=== PATIENT | female | born 1935 | race Hispanic/Latino ===

== ENCOUNTER 2019-04-07 16:47 | Emergency (ER) | payer MEDICARE ==
[~2019-04-07 16:47] MED LIST: ESOM40CA PO; FURO40TA5 PO; GLIP5TAB11 PO; INSU100I21 SQ; LEVO100T12 PO; LINA1TAB5 PO; LISI-613 PO; POTA-9 PO; SERT25TA5 PO; SIMV40TA59 PO
[2019-04-07] MEDS ORDERED: ONDANSETRON HCL 4 MG/2 ML VIAL ONE (17:22)
[2019-04-07] MEDS ORDERED: SODIUM CHLORIDE 0.9% 1000ML 1,000 ML IV ONE (17:22)
[2019-04-07 17:23] LABS: BASOPHILS % (AUTO) 0.9 % (0.0-5.0); EOSINOPHILS % (AUTO) 1.1 % (0.0-8.0); HEMATOCRIT 36.6 % (36-48); LYMPHOCYTES % (AUTO) 24.8 % (21.0-51.0); MEAN CORPUSCULAR HEMOGLOBIN 30.7 pg (27.0-33.0); MEAN CORPUSCULAR HGB CONC 33.7 g/dL (32.0-36.0); MEAN CORPUSCULAR VOLUME 91.3 fL (79-99); MONOCYTES % (AUTO) 5.6 % (3.0-13.0); NEUTROPHILS % (AUTO) 67.6 % (40.0-77.0); PLATELET COUNT (AUTO) 259 K/uL (130-400); RED CELL DISTRIBUTION WIDTH 13.1 % (11.0-15.5); WHITE BLOOD COUNT (AUTO) 8.8 K/uL (4.8-10.8)
[2019-04-07 17:28] LABS: APPEARANCE,URINE Clear (CLEAR); BILIRUBIN,URINE Negative (NEGATIVE); COLOR,URINE Dark Yellow (YELLOW); GLUCOSE, URINE (UA) TRACE mg/dL (NEGATIVE); KETONES,URINE Negative (NEGATIVE); LEUKOCYTE ESTERASE ,URINE Small (NEGATIVE); NITRATE,URINE Negative (NEGATIVE); OCCULT BLOOD,URINE Negative (NEGATIVE); PH,URINE 7.5 (5.0-8.0); PROTEIN,URINE POS 1+ mg/dL (NEGATIVE); UROBILINOGEN,URINE 0.2 mg/dL (0.2-1.0)
[2019-04-07 17:37] LABS: CREATININE 0.9 mg/dL (0.5-1.5); POTASSIUM 4.2 mmol/L (3.5-5.1)
[2019-04-07 17:41] LABS: ALBUMIN 3.9 g/dL (3.5-5.0); BILIRUBIN,DIRECT 0.1 mg/dL (0.0-0.3); BILIRUBIN,TOTAL 0.4 mg/dL (0.2-1.0); TOTAL PROTEIN, SERUM 7.5 g/dL (6.0-8.3)
[2019-04-07 17:46] LABS: BACTERIA,URINE Few /HPF (None Seen); MUCUS,URINE Few LPF (None Seen); RBC,URINE 0-1 /HPF (0-1)
== END 2019-04-07 18:31 | disposition home or self-care (01) ==
LOC: EDH 16:47
DX: K52.9 Noninfective gastroenteritis and colitis, unspecified (principal); E11.9 Type 2 diabetes mellitus without complications; I10 Essential (primary) hypertension; M81.0 Age-related osteoporosis without current pathological fracture; Z79.4 Long term (current) use of insulin
CPT/HCPCS: 36415; 74176; 80048; 80076; 81001; 82550; 83690; 84484; 85025; 93005; 96361; 96374; 99285; J2405; J7030

== ENCOUNTER → 2019-11-18 | Outpatient (CLI) | payer MEDICARE ==
[~2019-11-18] MED LIST changes: +GADODIAMIDE 10 MMOL/20 ML VIAL IV ONE
== END | disposition home or self-care (01) ==
LOC: RAH 10:54
PROVIDERS: ATTEND Family Medicine
DX: G50.1 Atypical facial pain (principal); G31.89 Other specified degenerative diseases of nervous system
CPT/HCPCS: 70543; A9579

== ENCOUNTER 2019-12-31 09:27 | Emergency (ER) | payer MEDICARE ==
[~2019-12-31 09:27] MED LIST changes: -GADODIAMIDE 10 MMOL/20 ML VIAL IV ONE
[2019-12-31] MEDS ORDERED: SODIUM CHLORIDE 0.9% 500ML 500 ML IV ONE (09:28)
[2019-12-31] MEDS ORDERED: ONDANSETRON HCL 4 MG/2 ML VIAL ONE (10:00)
[2019-12-31 10:33] LABS: BASOPHILS % (AUTO) 1.3 % (0.0-5.0); EOSINOPHILS % (AUTO) 1.6 % (0.0-8.0); HEMATOCRIT 32.9 % (36-48); MEAN CORPUSCULAR HEMOGLOBIN 29.8 pg (27.0-33.0); MEAN CORPUSCULAR HGB CONC 33.7 g/dL (32.0-36.0); MEAN CORPUSCULAR VOLUME 88.4 fL (79-99); MONOCYTES % (AUTO) 9.3 % (3.0-13.0); NEUTROPHILS % (AUTO) 60.3 % (40.0-77.0); PLATELET COUNT (AUTO) 238 K/uL (130-400); RED BLOOD CELL COUNT(AUTO) 3.72 MIL/uL (4.00-5.50); RED CELL DISTRIBUTION WIDTH 13.9 % (11.0-15.5); WHITE BLOOD COUNT (AUTO) 6.1 K/uL (4.8-10.8)
[2019-12-31 10:43] LABS: CARBON DIOXIDE 25 mmol/L (21-32); CHLORIDE 93 mmol/L (101-111); CREATININE 0.8 mg/dL (0.5-1.5); GLOMERULAR FILTR. RATE CALC 72 mL/min (>60); GLUCOSE,RANDOM 125 mg/dL (70-105); POTASSIUM 4.3 mmol/L (3.5-5.1); SODIUM SERUM 128 mmol/L (136-145); UREA NITROGEN, BLOOD 12 mg/dL (7-18)
[2019-12-31 10:52] LABS: ALANINE AMINOTRANSFERASE 13 U/L (12-78); ALBUMIN 3.2 g/dL (3.5-5.0); ASPARTATE AMINOTRANSFERASE 12 U/L (10-37); BILIRUBIN,DIRECT < 0.1 mg/dL (0.0-0.3); BILIRUBIN,TOTAL 0.1 mg/dL (0.2-1.0); CREATINE KINASE, TOTAL 23 U/L (21-232); TOTAL PROTEIN, SERUM 6.5 g/dL (6.0-8.3)
[2019-12-31 10:53] LABS: APPEARANCE,URINE Clear (CLEAR); BILIRUBIN,URINE Negative (NEGATIVE); COLOR,URINE Yellow (YELLOW); GLUCOSE, URINE (UA) Negative (NEGATIVE); KETONES,URINE Negative (NEGATIVE); LEUKOCYTE ESTERASE ,URINE Negative (NEGATIVE); NITRATE,URINE Negative (NEGATIVE); OCCULT BLOOD,URINE Negative (NEGATIVE); PROTEIN,URINE Negative (NEGATIVE); UROBILINOGEN,URINE 0.2 mg/dL (0.2-1.0)
== END 2019-12-31 13:43 | disposition home or self-care (01) ==
LOC: EDH 09:27
DX: R42 Dizziness and giddiness (principal); R11.0 Nausea; E11.9 Type 2 diabetes mellitus without complications; I10 Essential (primary) hypertension; M19.90 Unspecified osteoarthritis, unspecified site; M81.0 Age-related osteoporosis without current pathological fracture
CPT/HCPCS: 36415; 70450; 71045; 80048; 80076; 81003; 82550; 84484; 85025; 93005; 96374; 99285; J2405; J7040

== ENCOUNTER 2021-10-17 09:09 | Inpatient (IN) | payer MEDICARE ==
[~2021-10-17] VITALS: Ht 162.6 cm; Wt 74.4 kg
[~2021-10-17 09:09] MED LIST changes: -LISI-613 PO; +LISI20TA24 PO; +POTA-10 PO; -POTA-9 PO; +SERT-438 PO; -SERT25TA5 PO
[2021-10-17 09:38] LABS: BASOPHILS % (AUTO) 0.7 % (0.0-5.0); HEMATOCRIT 34.4 % (36-48); LYMPHOCYTES % (AUTO) 25.4 % (21.0-51.0); MEAN CORPUSCULAR HEMOGLOBIN 28.4 pg (27.0-33.0); MEAN CORPUSCULAR HGB CONC 31.7 g/dL (32.0-36.0); MEAN CORPUSCULAR VOLUME 89.6 fL (79-99); MONOCYTES % (AUTO) 6.1 % (3.0-13.0); NEUTROPHILS % (AUTO) 65.4 % (40.0-77.0); PLATELET COUNT (AUTO) 306 K/uL (130-400); RED BLOOD CELL COUNT(AUTO) 3.84 MIL/uL (4.00-5.50); RED CELL DISTRIBUTION WIDTH 14.7 % (11.0-15.5); WHITE BLOOD COUNT (AUTO) 8.1 K/uL (4.8-10.8)
[2021-10-17 09:59] LABS: CREATININE 1.3 mg/dL (0.5-1.5); POTASSIUM 5.5 mmol/L (3.5-5.1)
[2021-10-17] MEDS ORDERED: 0.9%NACL 1000ML 1,000 ML IV ONE (10:00)
[2021-10-17 10:04] LABS: ALBUMIN 3.5 g/dL (3.5-5.0); BILIRUBIN,TOTAL 0.2 mg/dL (0.2-1.0); MAGNESIUM 1.7 mg/dL (1.80-2.40); TOTAL PROTEIN, SERUM 7.1 g/dL (6.0-8.3)
[2021-10-17] MEDS ORDERED: ATOR10TA69 PO (10:41)
[2021-10-17] MEDS ORDERED: BACL10TA PO (10:41)
[2021-10-17] MEDS ORDERED: CHOL2400 MC (10:42)
[2021-10-17] MEDS ORDERED: LEVO112C4 PO (10:43)
[2021-10-17] MEDS ORDERED: METO-408 PO (10:43)
[2021-10-17 11:10] LABS: APPEARANCE,URINE Clear (CLEAR); BILIRUBIN,URINE Negative (NEGATIVE); COLOR,URINE Yellow (YELLOW); GLUCOSE, URINE (UA) TRACE mg/dL (NEGATIVE); KETONES,URINE Negative (NEGATIVE); LEUKOCYTE ESTERASE ,URINE Trace (NEGATIVE); NITRATE,URINE Negative (NEGATIVE); OCCULT BLOOD,URINE Negative (NEGATIVE); PROTEIN,URINE Negative (NEGATIVE); UROBILINOGEN,URINE 0.2 mg/dL (0.2-1.0)
[2021-10-17 11:19] LABS: BACTERIA,URINE Rare /HPF (None Seen); SQUAMOUS EPITHELIAL CELL,UR 0-2 /HPF (0-2); WBC,URINE 0-1 /HPF (0-1)
[2021-10-17] MEDS ORDERED: OSELTAMIVIR PHOSPHATE 75 MG CAP PO SCH (11:30)
[2021-10-17] MEDS ORDERED: ACETAMINOPHEN 325 MG TAB PO PRN (12:30)
[2021-10-17] MEDS: ARTIFICAL TEARS SOL 15 ML OU SCH (12:30)
[2021-10-17] MEDS ORDERED: KAYEXALATE 15GM/60ML PO PRN (12:30)
[2021-10-17] MEDS ORDERED: ALBUTEROL INHALER 90MCG/INH IH PRN (12:30)
[2021-10-17] MEDS ORDERED: HYDRALAZINE 20MG/ML VIAL IV PRN ×2 (12:30→19:30)
[2021-10-17] MEDS: MAGNESIUM 2GM PREMIX 50ML 50 ML IV PRN (13:10)
[2021-10-17] MEDS: CLONIDINE HCL 0.1 MG TABLET PO PRN (13:12)
[2021-10-17] MEDS ORDERED: LIDOCAINE HCL-MPF 1% 2ML VIAL ONE (15:21)
[2021-10-17] MEDS ORDERED: HYDROMORPHONE 0.5 MG SYG (0.5MG/0.5ML) ONE ×2 (15:22→15:33)
[2021-10-17 16:14] VITALS: BP 180/84
[2021-10-17] MEDS ORDERED: INSULIN HUMULIN R 100 UNIT/ML 3ML SQ SCH (16:30)
[2021-10-17] MEDS ORDERED: TRAMADOL HCL 50 MG TABLET PO PRN (19:30)
[2021-10-17] MEDS ORDERED: MORPHINE 2 MG SYG IVP PRN (20:00)
[2021-10-17 20:01] VITALS: BP 195/97
[2021-10-17] MEDS: HYDROMORPHONE 0.5 MG SYG (0.5MG/0.5ML) IVP PRN (20:30)
[2021-10-17] MEDS: INSULIN LISPRO 100 UNIT/ML 3ML SQ SCH (21:00)
[2021-10-17 23:14] VITALS: BP 193/102
[2021-10-18] MEDS: CLONIDINE HCL 0.1 MG TABLET PO PRN (00:17)
[2021-10-18 03:26] VITALS: BP 184/97
[2021-10-18 03:28] LABS: BASOPHILS % (AUTO) 0.5 % (0.0-5.0); EOSINOPHILS % (AUTO) 0.3 % (0.0-8.0); HEMATOCRIT 33.7 % (36-48); LYMPHOCYTES % (AUTO) 14.9 % (21.0-51.0); MEAN CORPUSCULAR HEMOGLOBIN 27.5 pg (27.0-33.0); MEAN CORPUSCULAR VOLUME 85.8 fL (79-99); MONOCYTES % (AUTO) 5.1 % (3.0-13.0); NEUTROPHILS % (AUTO) 78.8 % (40.0-77.0); PLATELET COUNT (AUTO) 305 K/uL (130-400); RED BLOOD CELL COUNT(AUTO) 3.93 MIL/uL (4.00-5.50); RED CELL DISTRIBUTION WIDTH 14.1 % (11.0-15.5)
[2021-10-18 03:48] LABS: B-TYPE NATRIURETIC PEPTIDE 158 pg/mL (0-100)
[2021-10-18 03:59] LABS: ALBUMIN 3.5 g/dL (3.5-5.0); BILIRUBIN,TOTAL 0.3 mg/dL (0.2-1.0); CREATININE 0.7 mg/dL (0.5-1.5); MAGNESIUM 1.9 mg/dL (1.80-2.40); PHOSPHORUS 3.8 mg/dL (2.5-4.9); POTASSIUM 4.3 mmol/L (3.5-5.1); THYROID STIMULATING HORMONE 0.25 uIU/mL (0.36-3.74); TOTAL PROTEIN, SERUM 7.2 g/dL (6.0-8.3)
[2021-10-18] MEDS: HYDROMORPHONE 0.5 MG SYG (0.5MG/0.5ML) IVP PRN ×2 (04:40→15:47)
[2021-10-18] MEDS: ARTIFICAL TEARS SOL 15 ML OU SCH ×6 (06:30→23:59)
[2021-10-18] MEDS: INSULIN LISPRO 100 UNIT/ML 3ML SQ SCH ×4 (06:51→20:59)
[2021-10-18] MEDS ORDERED: BACLOFEN 10 MG TABLET PO PRN (07:00)
[2021-10-18 07:30] VITALS: BP 125/68
[2021-10-18] MEDS ORDERED: 0.9% NACL 250ML 250 ML ONE (08:02)
[2021-10-18] MEDS: PANTOPRAZOLE 40 MG TAB DR PO SCH (08:21)
[2021-10-18] MEDS: OSELTAMIVIR PHOSPHATE 75 MG CAP PO SCH (08:21)
[2021-10-18] MEDS: LISINOPRIL 20 MG TABLET PO SCH (08:21)
[2021-10-18] MEDS: METOPROLOL SUCCINATE 50 MG TAB.SR.24H PO SCH (08:21)
[2021-10-18] MEDS: DOXYCYCLINE 100MG+NS 250ML IV SCH (08:22)
[2021-10-18] MEDS: ENOXAPARIN SODIUM 30 MG/0.3 ML SQ SCH (08:23)
[2021-10-18] MEDS ORDERED: LEVOTHYROXINE 112 MCG TABLET PO SCH (09:00)
[2021-10-18] MEDS ORDERED: LEVOTHYROXINE 88 MCG TABLET PO SCH (09:00)
[2021-10-18 11:00] VITALS: BP 108/52
[2021-10-18 16:00] VITALS: BP 140/64
[2021-10-18] MEDS ORDERED: ONDANSETRON 4MG INJ IVP PRN (18:30)
[2021-10-18 20:00] VITALS: BP 137/63
[2021-10-18] MEDS: ATORVASTATIN 10 MG TABLET PO SCH (20:43)
[2021-10-19] VITALS (7 sets, daily range): BP systolic 115–185; BP diastolic 59–80
[2021-10-19] MEDS: MAGNESIUM 2GM PREMIX 50ML 50 ML IV PRN (01:52)
[2021-10-19 04:13] LABS: HEMATOCRIT 34.2 % (36-48); MEAN CORPUSCULAR HEMOGLOBIN 28.1 pg (27.0-33.0); MEAN CORPUSCULAR HGB CONC 32.2 g/dL (32.0-36.0); MEAN CORPUSCULAR VOLUME 87.2 fL (79-99); RED BLOOD CELL COUNT(AUTO) 3.92 MIL/uL (4.00-5.50); RED CELL DISTRIBUTION WIDTH 14.3 % (11.0-15.5); WHITE BLOOD COUNT (AUTO) 9.9 K/uL (4.8-10.8)
[2021-10-19 04:32] LABS: ALBUMIN 3.4 g/dL (3.5-5.0); BILIRUBIN,TOTAL 0.3 mg/dL (0.2-1.0); CREATININE 1.2 mg/dL (0.5-1.5); POTASSIUM 4.6 mmol/L (3.5-5.1); TOTAL PROTEIN, SERUM 6.8 g/dL (6.0-8.3)
[2021-10-19] MEDS: ARTIFICAL TEARS SOL 15 ML OU SCH ×4 (05:12→20:18)
[2021-10-19] MEDS: INSULIN LISPRO 100 UNIT/ML 3ML SQ SCH ×4 (05:52→19:51)
[2021-10-19] MEDS ORDERED: LEVOTHYROXINE 88 MCG TABLET PO SCH (06:30)
[2021-10-19] MEDS ORDERED: 0.9% NACL 250ML 250 ML ONE (09:19)
[2021-10-19] MEDS: DOXYCYCLINE 100MG+NS 250ML IV SCH (09:47)
[2021-10-19] MEDS: OSELTAMIVIR PHOSPHATE 75 MG CAP PO SCH (09:50)
[2021-10-19] MEDS: ENOXAPARIN SODIUM 30 MG/0.3 ML SQ SCH (09:50)
[2021-10-19] MEDS: METOPROLOL SUCCINATE 50 MG TAB.SR.24H PO SCH (09:50)
[2021-10-19] MEDS: LISINOPRIL 20 MG TABLET PO SCH (09:50)
[2021-10-19] MEDS: PANTOPRAZOLE 40 MG TAB DR PO SCH (09:50)
[2021-10-19] MEDS: HYDROMORPHONE 0.5 MG SYG (0.5MG/0.5ML) IVP PRN (19:04)
[2021-10-19] MEDS: ATORVASTATIN 10 MG TABLET PO SCH (20:17)
[2021-10-19] MEDS ORDERED: CLONIDINE HCL 0.1 MG TABLET PO PRN (20:30)
[2021-10-19] MEDS: CLONIDINE HCL 0.1 MG TABLET PO PRN (23:57)
[2021-10-19] MEDS: LACTULOSE 20 GM/30 ML UDCUP PO PRN (23:57)
[2021-10-20 04:01] LABS: HEMATOCRIT 33.3 % (36-48); MEAN CORPUSCULAR HEMOGLOBIN 28.2 pg (27.0-33.0); MEAN CORPUSCULAR HGB CONC 32.4 g/dL (32.0-36.0); MEAN CORPUSCULAR VOLUME 86.9 fL (79-99); RED BLOOD CELL COUNT(AUTO) 3.83 MIL/uL (4.00-5.50); RED CELL DISTRIBUTION WIDTH 14.4 % (11.0-15.5); WHITE BLOOD COUNT (AUTO) 9.8 K/uL (4.8-10.8)
[2021-10-20 04:10] VITALS: BP 119/63
[2021-10-20 04:10] LABS: CREATININE 0.9 mg/dL (0.5-1.5); MAGNESIUM 1.7 mg/dL (1.80-2.40); POTASSIUM 4.4 mmol/L (3.5-5.1)
[2021-10-20] MEDS: ARTIFICAL TEARS SOL 15 ML OU SCH ×2 (06:10→12:30)
[2021-10-20] MEDS: LEVOTHYROXINE 88 MCG TABLET PO SCH (06:10)
[2021-10-20] MEDS: INSULIN LISPRO 100 UNIT/ML 3ML SQ SCH ×4 (06:18→21:13)
[2021-10-20 07:05] VITALS: BP 143/72
[2021-10-20] MEDS: DOXYCYCLINE 100MG+NS 250ML IV SCH (08:49)
[2021-10-20] MEDS: KETOROLAC 15MG/ML VIAL (15MG/ML) IV PRN ×2 (08:50→21:33)
[2021-10-20] MEDS ORDERED: 0.9% NACL 250ML 250 ML ONE (08:50)
[2021-10-20] MEDS: OSELTAMIVIR PHOSPHATE 75 MG CAP PO SCH (08:50)
[2021-10-20] MEDS: PANTOPRAZOLE 40 MG TAB DR PO SCH (08:51)
[2021-10-20] MEDS: LISINOPRIL 20 MG TABLET PO SCH (08:51)
[2021-10-20] MEDS: METOPROLOL SUCCINATE 50 MG TAB.SR.24H PO SCH (08:52)
[2021-10-20] MEDS: ENOXAPARIN SODIUM 30 MG/0.3 ML SQ SCH (08:52)
[2021-10-20 11:05] VITALS: BP 113/80
[2021-10-20] MEDS: LACTULOSE 20 GM/30 ML UDCUP PO PRN (13:20)
[2021-10-20 15:05] VITALS: BP 134/65
[2021-10-20 20:12] VITALS: BP 148/61
[2021-10-20] MEDS: ATORVASTATIN 10 MG TABLET PO SCH (21:32)
[2021-10-20] MEDS ORDERED: OSEL75 PO (21:46)
[2021-10-21] MEDS: ARTIFICAL TEARS SOL 15 ML OU SCH ×2 (00:08→06:11)
[2021-10-21 01:09] VITALS: BP 132/66
[2021-10-21 04:26] LABS: MEAN CORPUSCULAR HEMOGLOBIN 28.1 pg (27.0-33.0); MEAN CORPUSCULAR HGB CONC 32.6 g/dL (32.0-36.0); MEAN CORPUSCULAR VOLUME 86.4 fL (79-99); RED BLOOD CELL COUNT(AUTO) 3.59 MIL/uL (4.00-5.50); RED CELL DISTRIBUTION WIDTH 14.5 % (11.0-15.5)
[2021-10-21 04:31] VITALS: BP 146/60
[2021-10-21 04:36] LABS: CREATININE 0.9 mg/dL (0.5-1.5); MAGNESIUM 2.2 mg/dL (1.80-2.40); POTASSIUM 4.6 mmol/L (3.5-5.1)
[2021-10-21] MEDS: INSULIN LISPRO 100 UNIT/ML 3ML SQ SCH ×2 (06:03→11:22)
[2021-10-21] MEDS: LEVOTHYROXINE 88 MCG TABLET PO SCH (06:09)
[2021-10-21] MEDS: KETOROLAC 15MG/ML VIAL (15MG/ML) IV PRN (06:10)
[2021-10-21 07:42] VITALS: BP 134/69
[2021-10-21] MEDS ORDERED: ARTIFICAL TEARS SOL 15 ML OU SCH (08:30)
[2021-10-21] MEDS: DOXYCYCLINE 100MG+NS 250ML IV SCH (09:05)
[2021-10-21] MEDS: LISINOPRIL 20 MG TABLET PO SCH (09:05)
[2021-10-21] MEDS: OSELTAMIVIR PHOSPHATE 75 MG CAP PO SCH (09:05)
[2021-10-21] MEDS: PANTOPRAZOLE 40 MG TAB DR PO SCH (09:05)
[2021-10-21] MEDS: METOPROLOL SUCCINATE 50 MG TAB.SR.24H PO SCH (09:05)
[2021-10-21] MEDS: ENOXAPARIN SODIUM 30 MG/0.3 ML SQ SCH (09:06)
[2021-10-21] MEDS ORDERED: 0.9% NACL 250ML 250 ML ONE (09:30)
[2021-10-21 10:50] VITALS: BP 124/52
[2021-10-21 15:57] VITALS: BP 128/59
== END 2021-10-21 17:15 | disposition home or self-care (01) | DRG 200 ==
LOC: EDH 09:09 → OBSVTOIN 12:25 → EDHIP 12:25 → 4DH 15:10 → 4AH 21:39
PROVIDERS: ADMIT Internal Medicine; ATTEND Internal Medicine
PROC: 0W9B30Z Drainage of Left Pleural Cavity with Drainage Device, Percutaneous Approach (ICD-10-PCS; principal; 2021-10-17)
DX: J93.9 Pneumothorax, unspecified (principal); E87.1 Hypo-osmolality and hyponatremia; N17.9 Acute kidney failure, unspecified; J10.1 Influenza due to other identified influenza virus with other respiratory manifestations; Z66 Do not resuscitate; E87.5 Hyperkalemia; E83.42 Hypomagnesemia; Z83.3 Family history of diabetes mellitus; Z82.49 Family history of ischemic heart disease and other diseases of the circulatory system; Z90.710 Acquired absence of both cervix and uterus; Z79.4 Long term (current) use of insulin; E03.9 Hypothyroidism, unspecified; I10 Essential (primary) hypertension; K29.70 Gastritis, unspecified, without bleeding; R91.8 Other nonspecific abnormal finding of lung field; Z20.822 Contact with and (suspected) exposure to COVID-19
CPT/HCPCS: 36415; 70450; 71045; 71250; 80048; 80053; 81001; 82550; 82948; 83605; 83735; 83874; 83880; 84100; 84145; 84443; 84484; 85025; 85027; 87071; 87205; 87635; 87804; 93005; 94760; 97039; C9803; G0378; J1170; J1650; J1815; J1885; J3475; J3490; J7050

== ENCOUNTER 2021-12-05 11:38 | Inpatient (IN) | payer MEDICARE ==
[~2021-12-05] VITALS: Ht 152.4 cm; Wt 70.0 kg
[2021-12-05] VITALS: BP 148/79
[~2021-12-05 11:38] MED LIST changes: +ATOR10TA69 PO; +BACL10TA PO; +CHOL2400 MC; -ESOM40CA PO; -FURO40TA5 PO; -GLIP5TAB11 PO; -INSU100I21 SQ; -LEVO100T12 PO; +LEVO112C4 PO; -LINA1TAB5 PO; -LISI20TA24 PO; +METO-408 PO; +OSEL75 PO; -POTA-10 PO; -SERT-438 PO; -SIMV40TA59 PO
[2021-12-05 12:10] LABS: BASOPHILS % (AUTO) 0.2 % (0.0-5.0); EOSINOPHILS % (AUTO) 0.3 % (0.0-8.0); HEMATOCRIT 34.9 % (36-48); LYMPHOCYTES % (AUTO) 13.1 % (21.0-51.0); MEAN CORPUSCULAR HEMOGLOBIN 28.3 pg (27.0-33.0); MEAN CORPUSCULAR HGB CONC 32.4 g/dL (32.0-36.0); MEAN CORPUSCULAR VOLUME 87.3 fL (79-99); MONOCYTES % (AUTO) 2.9 % (3.0-13.0); NEUTROPHILS % (AUTO) 82.8 % (40.0-77.0); PLATELET COUNT (AUTO) 253 K/uL (130-400); RED CELL DISTRIBUTION WIDTH 14.4 % (11.0-15.5); WHITE BLOOD COUNT (AUTO) 13.2 K/uL (4.8-10.8)
[2021-12-05 12:48] LABS: CARBON DIOXIDE 25 mmol/L (21-32); CHLORIDE 101 mmol/L (101-111); CREATININE 1.2 mg/dL (0.5-1.5); GLOMERULAR FILTR. RATE CALC 45 mL/min (>60); GLUCOSE,RANDOM 239 mg/dL (70-105); POTASSIUM 5.3 mmol/L (3.5-5.1); SODIUM SERUM 136 mmol/L (136-145); UREA NITROGEN, BLOOD 20 mg/dL (7-18)
[2021-12-05 12:52] LABS: ALANINE AMINOTRANSFERASE 12 U/L (12-78); ALBUMIN 3.1 g/dL (3.5-5.0); ASPARTATE AMINOTRANSFERASE 8 U/L (10-37); CREATINE KINASE, TOTAL 37 U/L (21-232); TOTAL PROTEIN, SERUM 6.6 g/dL (6.0-8.3)
[2021-12-05] MEDS ORDERED: ONDANSETRON 4MG INJ IVP ONE (14:00)
[2021-12-05] MEDS ORDERED: MORPHINE 2 MG SYG IVP ONE (14:00)
[2021-12-05 14:04] LABS: LIPASE 64 U/L (114-286)
[2021-12-05 14:19] LABS: APPEARANCE,URINE Cloudy (CLEAR); BILIRUBIN,URINE Negative (NEGATIVE); COLOR,URINE Yellow (YELLOW); GLUCOSE, URINE (UA) 250 mg/dL (NEGATIVE); KETONES,URINE Trace mg/dL (NEGATIVE); LEUKOCYTE ESTERASE ,URINE Large (NEGATIVE); NITRATE,URINE Negative (NEGATIVE); OCCULT BLOOD,URINE Negative (NEGATIVE); PROTEIN,URINE Trace mg/dL (NEGATIVE); UROBILINOGEN,URINE 0.2 mg/dL (0.2-1.0)
[2021-12-05 14:28] LABS: CRP QUANTITATIVE < 2.00 mg/L (0.00-9.0)
[2021-12-05 14:35] LABS: RBC,URINE 0-1 /HPF (0-1)
[2021-12-05 14:36] LABS: BACTERIA,URINE Few /HPF (None Seen); SQUAMOUS EPITHELIAL CELL,UR Moderate /HPF (0-2)
[2021-12-05] MEDS ORDERED: LIDOCAINE HCL-MPF 1% 2ML VIAL IV PRN ×2 (18:00)
[2021-12-05] MEDS ORDERED: GLUCAGON 1MG KIT 1 MG ML IM PRN (18:00)
[2021-12-05] MEDS ORDERED: CLONIDINE HCL 0.1 MG TABLET PO PRN (18:00)
[2021-12-05] MEDS ORDERED: POTASSIUM CHLORIDE 20MEQ/100ML 100 ML IV PRN ×2 (18:00)
[2021-12-05] MEDS ORDERED: MORPHINE 2 MG SYG IVP PRN (18:00)
[2021-12-05] MEDS ORDERED: ACETAMINOPHEN 650 MG SUPPOSITORY RC PRN (18:00)
[2021-12-05] MEDS ORDERED: TEMAZEPAM 15 MG CAPSULE PO PRN (18:00)
[2021-12-05] MEDS ORDERED: LACTULOSE 20 GM/30 ML UDCUP PO PRN (18:00)
[2021-12-05] MEDS: ZOSYN 3.375GM +NS 50ML IV SCH ×2 (18:00→20:20)
[2021-12-05] MEDS ORDERED: ONDANSETRON 4MG INJ IVP PRN (18:00)
[2021-12-05] MEDS ORDERED: PROPOFOL 10 MG/ML 20ML VIAL IV ONE (18:18)
[2021-12-05] MEDS ORDERED: LIDOCAINE HCL 1% 10 ML VIAL ONE (18:18)
[2021-12-05] MEDS ORDERED: FENTANYL CITRATE PF 50 MCG/1 ML 2ML VIAL ONE (18:19)
[2021-12-05 18:20] LABS: INR 1.09 (0.85-1.15); PROTHROMBIN TIME 11.8 SEC (9.6-11.6)
[2021-12-05 18:22] LABS: PARTIAL THROMBOPLASTIN TIME 22.7 SEC (26.3-35.5)
[2021-12-05] MEDS ORDERED: ACETAMINOPHEN 500 MG TABLET PO STA (19:54)
[2021-12-05] MEDS: INSULIN HUMULIN R 100 UNIT/ML 3ML SQ SCH (20:52)
[2021-12-05] MEDS ORDERED: BENZ200C53 PO (21:09)
[2021-12-05] MEDS ORDERED: PRED10B PO (21:09)
[2021-12-05 22:21] VITALS: BP 168/76
[2021-12-05] MEDS: ATORVASTATIN 10 MG TABLET PO SCH (23:11)
[2021-12-05] MEDS ORDERED: FLUT1BLS3 IH (23:19)
[2021-12-05] MEDS ORDERED: LEVO750T46 PO (23:19)
[2021-12-05] MEDS ORDERED: LINA1TAB5 PO (23:19)
[2021-12-05] MEDS ORDERED: LISI20TA24 PO (23:19)
[2021-12-05] MEDS ORDERED: ERGO500093 PO (23:19)
[2021-12-05] MEDS ORDERED: INSU100I21 SQ (23:19)
[2021-12-05] MEDS ORDERED: BENZONATATE 100 MG CAPSULE PO PRN (23:30)
[2021-12-05] MEDS ORDERED: ERGOCALCIFEROL (VITAMIN D2) 50,000 UNIT CAPSULE PO SCH (23:30)
[2021-12-05] MEDS ORDERED: PHARMACY COMMUNICATION MISC SCH (23:45)
[2021-12-06] VITALS (7 sets, daily range): BP systolic 103–171; BP diastolic 42–90
[2021-12-06 00:39] LABS: ABG BASE EXCESS 1.6 mmol/L (-2.0-3.0); ABG HCO3 26.5 mmol/L (21.0-28.0); ABG OXYGEN SATURATION 98.3 % (95.0-99.0); ABG PCO2 43 mmHg (32-45)
[2021-12-06] MEDS ORDERED: IPRATROPIUM/ALBUTEROL SULFATE 3 ML SOLUTION IH PRN (01:00)
[2021-12-06 04:44] LABS: BASOPHILS % (AUTO) 0.4 % (0.0-5.0); EOSINOPHILS % (AUTO) 0.7 % (0.0-8.0); HEMATOCRIT 34.3 % (36-48); LYMPHOCYTES % (AUTO) 21.6 % (21.0-51.0); MEAN CORPUSCULAR HEMOGLOBIN 28.2 pg (27.0-33.0); MEAN CORPUSCULAR HGB CONC 32.7 g/dL (32.0-36.0); MEAN CORPUSCULAR VOLUME 86.4 fL (79-99); NEUTROPHILS % (AUTO) 68.6 % (40.0-77.0); PLATELET COUNT (AUTO) 247 K/uL (130-400); RED BLOOD CELL COUNT(AUTO) 3.97 MIL/uL (4.00-5.50); RED CELL DISTRIBUTION WIDTH 14.1 % (11.0-15.5); WHITE BLOOD COUNT (AUTO) 13.4 K/uL (4.8-10.8)
[2021-12-06 05:04] LABS: HEMOGLOBIN A1C 8.3 % (4.0-6.0)
[2021-12-06 05:06] LABS: CREATININE 0.8 mg/dL (0.5-1.5); MAGNESIUM 1.5 mg/dL (1.80-2.40); PHOSPHORUS 5.6 mg/dL (2.5-4.9); POTASSIUM 4.2 mmol/L (3.5-5.1); THYROID STIMULATING HORMONE 0.36 uIU/mL (0.36-3.74)
[2021-12-06] MEDS ORDERED: PHARMACY COMMUNICATION MISC SCH (05:30)
[2021-12-06] MEDS: MAGNESIUM 2GM PREMIX 50ML 50 ML IV PRN (06:10)
[2021-12-06] MEDS: INSULIN HUMULIN R 100 UNIT/ML 3ML SQ SCH ×4 (06:33→20:29)
[2021-12-06] MEDS: ***HM***(Fluticasone/Umeclidin/Vilanter (Trelegy Ellipta 100-62.5- IH SCH (09:00)
[2021-12-06] MEDS: PREDNISONE 10 MG TABLET PO SCH (09:20)
[2021-12-06] MEDS: POLYETHYLENE GLYCOL 3350 17 GM POWD.PACK PO SCH (09:20)
[2021-12-06] MEDS: LISINOPRIL 20 MG TABLET PO SCH (09:23)
[2021-12-06] MEDS: ZOSYN 3.375GM +NS 50ML IV SCH ×2 (09:23→20:28)
[2021-12-06] MEDS: METOPROLOL SUCCINATE 25 MG TAB.SR.24H PO SCH (09:23)
[2021-12-06] MEDS: LEVOTHYROXINE 112 MCG TABLET PO SCH (09:23)
[2021-12-06] MEDS: ATORVASTATIN 10 MG TABLET PO SCH (20:28)
[2021-12-07 04:29] VITALS: BP 116/63
[2021-12-07] MEDS: LEVOTHYROXINE 112 MCG TABLET PO SCH (05:59)
[2021-12-07] MEDS: INSULIN HUMULIN R 100 UNIT/ML 3ML SQ SCH ×4 (05:59→20:31)
[2021-12-07 07:35] LABS: BASOPHILS % (AUTO) 0.4 % (0.0-5.0); EOSINOPHILS % (AUTO) 1.5 % (0.0-8.0); HEMATOCRIT 35.3 % (36-48); LYMPHOCYTES % (AUTO) 19.1 % (21.0-51.0); MEAN CORPUSCULAR HEMOGLOBIN 28.5 pg (27.0-33.0); MEAN CORPUSCULAR HGB CONC 32.3 g/dL (32.0-36.0); MEAN CORPUSCULAR VOLUME 88.3 fL (79-99); MONOCYTES % (AUTO) 6.2 % (3.0-13.0); PLATELET COUNT (AUTO) 242 K/uL (130-400); RED CELL DISTRIBUTION WIDTH 14.5 % (11.0-15.5); WHITE BLOOD COUNT (AUTO) 11.9 K/uL (4.8-10.8)
[2021-12-07 07:46] LABS: CREATININE 1.4 mg/dL (0.5-1.5); POTASSIUM 4.1 mmol/L (3.5-5.1)
[2021-12-07 08:00] VITALS: BP 146/59
[2021-12-07] MEDS: ZOSYN 3.375GM +NS 50ML IV SCH ×2 (08:25→20:28)
[2021-12-07] MEDS: METOPROLOL SUCCINATE 25 MG TAB.SR.24H PO SCH (08:25)
[2021-12-07] MEDS: LISINOPRIL 20 MG TABLET PO SCH (08:25)
[2021-12-07] MEDS: POLYETHYLENE GLYCOL 3350 17 GM POWD.PACK PO SCH (08:26)
[2021-12-07] MEDS: ENOXAPARIN SODIUM 40 MG/0.4 ML SYRINGE SQ SCH (08:26)
[2021-12-07] MEDS: ***HM***(Fluticasone/Umeclidin/Vilanter (Trelegy Ellipta 100-62.5- IH SCH (08:26)
[2021-12-07] MEDS: PREDNISONE 10 MG TABLET PO SCH (09:52)
[2021-12-07 12:00] VITALS: BP 158/77
[2021-12-07] MEDS: ACETAMINOPHEN 325 MG TAB PO PRN (13:19)
[2021-12-07 16:00] VITALS: BP 130/55
[2021-12-07 19:58] VITALS: BP 118/73
[2021-12-07] MEDS: ATORVASTATIN 10 MG TABLET PO SCH (20:28)
[2021-12-07] MEDS: DEXTROSE 50%-WATER 50 ML DISP.SYRIN IV PRN (23:49)
[2021-12-08 00:15] VITALS: BP 140/60
[2021-12-08 03:25] VITALS: BP 131/66
[2021-12-08] MEDS: DEXTROSE 50%-WATER 50 ML DISP.SYRIN IV PRN (03:38)
[2021-12-08 04:21] LABS: BASOPHILS % (AUTO) 0.5 % (0.0-5.0); EOSINOPHILS % (AUTO) 1.9 % (0.0-8.0); HEMATOCRIT 33.7 % (36-48); LYMPHOCYTES % (AUTO) 22.6 % (21.0-51.0); MEAN CORPUSCULAR HEMOGLOBIN 28.2 pg (27.0-33.0); MEAN CORPUSCULAR HGB CONC 31.8 g/dL (32.0-36.0); MEAN CORPUSCULAR VOLUME 88.7 fL (79-99); MONOCYTES % (AUTO) 6.9 % (3.0-13.0); NEUTROPHILS % (AUTO) 67.2 % (40.0-77.0); PLATELET COUNT (AUTO) 241 K/uL (130-400); RED CELL DISTRIBUTION WIDTH 14.4 % (11.0-15.5); WHITE BLOOD COUNT (AUTO) 10.3 K/uL (4.8-10.8)
[2021-12-08 04:27] LABS: ALBUMIN 2.6 g/dL (3.5-5.0); CREATININE 1.3 mg/dL (0.5-1.5); POTASSIUM 3.5 mmol/L (3.5-5.1); TOTAL PROTEIN, SERUM 5.8 g/dL (6.0-8.3)
[2021-12-08] MEDS: INSULIN HUMULIN R 100 UNIT/ML 3ML SQ SCH ×4 (06:06→21:56)
[2021-12-08] MEDS: LEVOTHYROXINE 112 MCG TABLET PO SCH (06:07)
[2021-12-08] MEDS: POTASSIUM CHLORIDE 10% ELIXIR 20 MEQ/15 ML UDCUP PO PRN (06:08)
[2021-12-08 08:00] VITALS: BP 186/67
[2021-12-08] MEDS: ***HM***(Fluticasone/Umeclidin/Vilanter (Trelegy Ellipta 100-62.5- IH SCH (09:00)
[2021-12-08] MEDS: LISINOPRIL 20 MG TABLET PO SCH (09:21)
[2021-12-08] MEDS: ZOSYN 3.375GM +NS 50ML IV SCH ×2 (09:21→20:42)
[2021-12-08] MEDS: METOPROLOL SUCCINATE 25 MG TAB.SR.24H PO SCH (09:21)
[2021-12-08] MEDS: PREDNISONE 10 MG TABLET PO SCH (09:21)
[2021-12-08] MEDS: POLYETHYLENE GLYCOL 3350 17 GM POWD.PACK PO SCH (09:22)
[2021-12-08] MEDS: ENOXAPARIN SODIUM 40 MG/0.4 ML SYRINGE SQ SCH (09:23)
[2021-12-08 11:57] VITALS: BP 144/58
[2021-12-08 16:00] VITALS: BP 151/63
[2021-12-08 19:39] LABS: ABG BASE EXCESS -0.4 mmol/L (-2.0-3.0); ABG HCO3 24.8 mmol/L (21.0-28.0); ABG OXYGEN SATURATION 97.6 % (95.0-99.0); ABG PCO2 43 mmHg (32-45)
[2021-12-08 20:23] VITALS: BP 137/75
[2021-12-08] MEDS: ATORVASTATIN 10 MG TABLET PO SCH (20:42)
[2021-12-09 00:11] VITALS: BP 127/69
[2021-12-09] MEDS: DEXTROSE 50%-WATER 50 ML DISP.SYRIN IV PRN (01:47)
[2021-12-09 03:14] LABS: HEMATOCRIT 32.2 % (36-48); MEAN CORPUSCULAR HEMOGLOBIN 28.5 pg (27.0-33.0); MEAN CORPUSCULAR HGB CONC 32.3 g/dL (32.0-36.0); MEAN CORPUSCULAR VOLUME 88.2 fL (79-99); PLATELET COUNT (AUTO) 240 K/uL (130-400); RED BLOOD CELL COUNT(AUTO) 3.65 MIL/uL (4.00-5.50); RED CELL DISTRIBUTION WIDTH 14.2 % (11.0-15.5); WHITE BLOOD COUNT (AUTO) 11.6 K/uL (4.8-10.8)
[2021-12-09 03:29] LABS: ALBUMIN 2.7 g/dL (3.5-5.0); CREATININE 0.9 mg/dL (0.5-1.5); POTASSIUM 3.6 mmol/L (3.5-5.1); TOTAL PROTEIN, SERUM 5.9 g/dL (6.0-8.3)
[2021-12-09 03:35] LABS: BASOPHILS % (AUTO) 0.3 % (0.0-5.0); EOSINOPHILS % (AUTO) 2.2 % (0.0-8.0); LYMPHOCYTES % (AUTO) 23.9 % (21.0-51.0); MONOCYTES % (AUTO) 7.7 % (3.0-13.0)
[2021-12-09 04:25] VITALS: BP 166/88
[2021-12-09] MEDS: LEVOTHYROXINE 112 MCG TABLET PO SCH (06:40)
[2021-12-09] MEDS: INSULIN HUMULIN R 100 UNIT/ML 3ML SQ SCH ×4 (06:40→21:00)
[2021-12-09] MEDS: METOPROLOL SUCCINATE 25 MG TAB.SR.24H PO SCH (07:55)
[2021-12-09] MEDS: LISINOPRIL 20 MG TABLET PO SCH (07:55)
[2021-12-09] MEDS: POLYETHYLENE GLYCOL 3350 17 GM POWD.PACK PO SCH (07:55)
[2021-12-09] MEDS: ***HM***(Fluticasone/Umeclidin/Vilanter (Trelegy Ellipta 100-62.5- IH SCH (07:55)
[2021-12-09] MEDS: PREDNISONE 10 MG TABLET PO SCH (07:55)
[2021-12-09 08:00] VITALS: BP 147/89
[2021-12-09] MEDS: ENOXAPARIN SODIUM 40 MG/0.4 ML SYRINGE SQ SCH (08:05)
[2021-12-09] MEDS: ZOSYN 3.375GM +NS 50ML IV SCH ×2 (08:40→20:15)
[2021-12-09 11:25] VITALS: BP 118/70
[2021-12-09 16:00] VITALS: BP 116/60
[2021-12-09 19:39] VITALS: BP 130/58
[2021-12-09] MEDS: ATORVASTATIN 10 MG TABLET PO SCH (20:15)
[2021-12-10] VITALS (7 sets, daily range): BP systolic 114–149; BP diastolic 52–78
[2021-12-10 04:34] LABS: EOSINOPHILS % (AUTO) 3.7 % (0.0-8.0); HEMATOCRIT 32.8 % (36-48); LYMPHOCYTES % (AUTO) 23.2 % (21.0-51.0); MEAN CORPUSCULAR HEMOGLOBIN 28.1 pg (27.0-33.0); MEAN CORPUSCULAR HGB CONC 31.4 g/dL (32.0-36.0); MEAN CORPUSCULAR VOLUME 89.6 fL (79-99); MONOCYTES % (AUTO) 7.5 % (3.0-13.0); NEUTROPHILS % (AUTO) 63.8 % (40.0-77.0); PLATELET COUNT (AUTO) 213 K/uL (130-400); RED BLOOD CELL COUNT(AUTO) 3.66 MIL/uL (4.00-5.50); RED CELL DISTRIBUTION WIDTH 14.4 % (11.0-15.5)
[2021-12-10 04:50] LABS: ALBUMIN 2.6 g/dL (3.5-5.0); CREATININE 0.9 mg/dL (0.5-1.5); POTASSIUM 4.5 mmol/L (3.5-5.1); TOTAL PROTEIN, SERUM 5.6 g/dL (6.0-8.3)
[2021-12-10] MEDS: INSULIN HUMULIN R 100 UNIT/ML 3ML SQ SCH ×4 (06:03→20:56)
[2021-12-10] MEDS: LEVOTHYROXINE 112 MCG TABLET PO SCH (06:25)
[2021-12-10] MEDS: ZOSYN 3.375GM +NS 50ML IV SCH ×2 (08:42→20:26)
[2021-12-10] MEDS: METOPROLOL SUCCINATE 25 MG TAB.SR.24H PO SCH (08:44)
[2021-12-10] MEDS: POLYETHYLENE GLYCOL 3350 17 GM POWD.PACK PO SCH (08:44)
[2021-12-10] MEDS: ENOXAPARIN SODIUM 40 MG/0.4 ML SYRINGE SQ SCH (08:45)
[2021-12-10] MEDS: PREDNISONE 10 MG TABLET PO SCH (08:45)
[2021-12-10] MEDS: LISINOPRIL 20 MG TABLET PO SCH (08:46)
[2021-12-10] MEDS: ***HM***(Fluticasone/Umeclidin/Vilanter (Trelegy Ellipta 100-62.5- IH SCH (08:46)
[2021-12-10] MEDS: ATORVASTATIN 10 MG TABLET PO SCH (20:26)
[2021-12-11] VITALS: BP 128/74
[2021-12-11 04:00] VITALS: BP 128/80
[2021-12-11 04:18] LABS: BASOPHILS % (AUTO) 0.8 % (0.0-5.0); EOSINOPHILS % (AUTO) 3.9 % (0.0-8.0); HEMATOCRIT 30.8 % (36-48); LYMPHOCYTES % (AUTO) 24.4 % (21.0-51.0); MEAN CORPUSCULAR HEMOGLOBIN 28.5 pg (27.0-33.0); MEAN CORPUSCULAR HGB CONC 31.8 g/dL (32.0-36.0); MEAN CORPUSCULAR VOLUME 89.5 fL (79-99); MONOCYTES % (AUTO) 9.2 % (3.0-13.0); NEUTROPHILS % (AUTO) 60.7 % (40.0-77.0); PLATELET COUNT (AUTO) 187 K/uL (130-400); RED BLOOD CELL COUNT(AUTO) 3.44 MIL/uL (4.00-5.50); RED CELL DISTRIBUTION WIDTH 14.4 % (11.0-15.5)
[2021-12-11 04:33] LABS: ALBUMIN 2.5 g/dL (3.5-5.0); CREATININE 0.9 mg/dL (0.5-1.5); POTASSIUM 4.6 mmol/L (3.5-5.1); TOTAL PROTEIN, SERUM 5.7 g/dL (6.0-8.3)
[2021-12-11] MEDS: LEVOTHYROXINE 112 MCG TABLET PO SCH (06:17)
[2021-12-11] MEDS: INSULIN HUMULIN R 100 UNIT/ML 3ML SQ SCH ×3 (06:42→16:55)
[2021-12-11 08:00] VITALS: BP 106/88
[2021-12-11] MEDS: METOPROLOL SUCCINATE 25 MG TAB.SR.24H PO SCH (08:34)
[2021-12-11] MEDS: LISINOPRIL 20 MG TABLET PO SCH (08:34)
[2021-12-11] MEDS: ZOSYN 3.375GM +NS 50ML IV SCH ×2 (08:34→20:40)
[2021-12-11] MEDS: POLYETHYLENE GLYCOL 3350 17 GM POWD.PACK PO SCH (08:35)
[2021-12-11] MEDS: ENOXAPARIN SODIUM 40 MG/0.4 ML SYRINGE SQ SCH (08:35)
[2021-12-11] MEDS: PREDNISONE 10 MG TABLET PO SCH (08:35)
[2021-12-11] MEDS: ***HM***(Fluticasone/Umeclidin/Vilanter (Trelegy Ellipta 100-62.5- IH SCH (09:00)
[2021-12-11 12:00] VITALS: BP 122/76
[2021-12-11 16:00] VITALS: BP 118/72
[2021-12-11 20:10] VITALS: BP 141/67
[2021-12-11] MEDS: ATORVASTATIN 10 MG TABLET PO SCH (20:40)
[2021-12-12 00:30] VITALS: BP 171/88
[2021-12-12 04:00] VITALS: BP 175/74
[2021-12-12 04:26] LABS: HEMATOCRIT 34.4 % (36-48); MEAN CORPUSCULAR HEMOGLOBIN 28.5 pg (27.0-33.0); MEAN CORPUSCULAR HGB CONC 32.3 g/dL (32.0-36.0); MEAN CORPUSCULAR VOLUME 88.4 fL (79-99); RED BLOOD CELL COUNT(AUTO) 3.89 MIL/uL (4.00-5.50); RED CELL DISTRIBUTION WIDTH 14.2 % (11.0-15.5); WHITE BLOOD COUNT (AUTO) 10.2 K/uL (4.8-10.8)
[2021-12-12 04:55] LABS: ALBUMIN 2.8 g/dL (3.5-5.0); CREATININE 0.7 mg/dL (0.5-1.5); MAGNESIUM 1.8 mg/dL (1.80-2.40); POTASSIUM 4.6 mmol/L (3.5-5.1); TOTAL PROTEIN, SERUM 6.3 g/dL (6.0-8.3)
[2021-12-12] MEDS: LEVOTHYROXINE 112 MCG TABLET PO SCH (05:24)
[2021-12-12] MEDS: MAGNESIUM 2GM PREMIX 50ML 50 ML IV PRN (05:25)
[2021-12-12] MEDS: INSULIN HUMULIN R 100 UNIT/ML 3ML SQ SCH ×4 (05:58→21:46)
[2021-12-12 08:00] VITALS: BP 115/55
[2021-12-12] MEDS: PREDNISONE 10 MG TABLET PO SCH (09:00)
[2021-12-12] MEDS: POLYETHYLENE GLYCOL 3350 17 GM POWD.PACK PO SCH (09:00)
[2021-12-12] MEDS: ENOXAPARIN SODIUM 40 MG/0.4 ML SYRINGE SQ SCH (09:00)
[2021-12-12] MEDS: ZOSYN 3.375GM +NS 50ML IV SCH ×2 (09:00→21:45)
[2021-12-12] MEDS: ***HM***(Fluticasone/Umeclidin/Vilanter (Trelegy Ellipta 100-62.5- IH SCH (09:00)
[2021-12-12] MEDS: METOPROLOL SUCCINATE 25 MG TAB.SR.24H PO SCH (09:05)
[2021-12-12] MEDS: LISINOPRIL 20 MG TABLET PO SCH (09:06)
[2021-12-12 12:00] VITALS: BP 111/57
[2021-12-12 16:00] VITALS: BP 117/66
[2021-12-12] MEDS: INSULIN GLARGINE 100 UNITS/ML 10 ML VIAL SQ SCH ×2 (16:30→21:48)
[2021-12-12 19:24] VITALS: BP 131/69
[2021-12-12] MEDS: ATORVASTATIN 10 MG TABLET PO SCH (21:49)
[2021-12-13] VITALS (7 sets, daily range): BP systolic 126–153; BP diastolic 70–106
[2021-12-13] MEDS: INSULIN GLARGINE 100 UNITS/ML 10 ML VIAL SQ SCH (07:30)
[2021-12-13] MEDS: INSULIN HUMULIN R 100 UNIT/ML 3ML SQ SCH ×4 (07:30→21:47)
[2021-12-13] MEDS: LEVOTHYROXINE 112 MCG TABLET PO SCH (07:39)
[2021-12-13] MEDS: ZOSYN 3.375GM +NS 50ML IV SCH ×2 (08:59→19:52)
[2021-12-13] MEDS: METOPROLOL SUCCINATE 25 MG TAB.SR.24H PO SCH (09:00)
[2021-12-13] MEDS: ***HM***(Fluticasone/Umeclidin/Vilanter (Trelegy Ellipta 100-62.5- IH SCH (09:00)
[2021-12-13] MEDS: POLYETHYLENE GLYCOL 3350 17 GM POWD.PACK PO SCH (09:00)
[2021-12-13] MEDS: ENOXAPARIN SODIUM 40 MG/0.4 ML SYRINGE SQ SCH (09:01)
[2021-12-13] MEDS: LISINOPRIL 20 MG TABLET PO SCH (09:01)
[2021-12-13] MEDS: PREDNISONE 10 MG TABLET PO SCH (09:01)
[2021-12-13] MEDS: ATORVASTATIN 10 MG TABLET PO SCH (19:52)
[2021-12-13] MEDS: DEXTROSE 50%-WATER 50 ML DISP.SYRIN IV PRN (23:26)
[2021-12-14 03:19] VITALS: BP 138/67
[2021-12-14 04:19] LABS: HEMATOCRIT 30.8 % (36-48); MEAN CORPUSCULAR HEMOGLOBIN 28.5 pg (27.0-33.0); MEAN CORPUSCULAR HGB CONC 32.8 g/dL (32.0-36.0); RED BLOOD CELL COUNT(AUTO) 3.54 MIL/uL (4.00-5.50); RED CELL DISTRIBUTION WIDTH 14.3 % (11.0-15.5); WHITE BLOOD COUNT (AUTO) 7.5 K/uL (4.8-10.8)
[2021-12-14 04:30] LABS: INR 0.94 (0.85-1.15); PROTHROMBIN TIME 10.3 SEC (9.6-11.6)
[2021-12-14 04:31] LABS: PARTIAL THROMBOPLASTIN TIME 22.8 SEC (26.3-35.5)
[2021-12-14 04:33] LABS: ALBUMIN 2.5 g/dL (3.5-5.0); CREATININE 0.8 mg/dL (0.5-1.5); POTASSIUM 3.4 mmol/L (3.5-5.1); TOTAL PROTEIN, SERUM 5.7 g/dL (6.0-8.3)
[2021-12-14] MEDS: INSULIN HUMULIN R 100 UNIT/ML 3ML SQ SCH ×4 (06:06→19:56)
[2021-12-14] MEDS: LEVOTHYROXINE 112 MCG TABLET PO SCH (06:11)
[2021-12-14 07:40] VITALS: BP 133/58
[2021-12-14] MEDS: PREDNISONE 10 MG TABLET PO SCH (08:44)
[2021-12-14] MEDS: ZOSYN 3.375GM +NS 50ML IV SCH ×2 (08:44→21:29)
[2021-12-14] MEDS: METOPROLOL SUCCINATE 25 MG TAB.SR.24H PO SCH (08:45)
[2021-12-14] MEDS: KCL 20 MEQ ERTAB PO PRN ×2 (08:45→10:42)
[2021-12-14] MEDS: LISINOPRIL 20 MG TABLET PO SCH (08:45)
[2021-12-14] MEDS: POLYETHYLENE GLYCOL 3350 17 GM POWD.PACK PO SCH (08:45)
[2021-12-14] MEDS: ENOXAPARIN SODIUM 40 MG/0.4 ML SYRINGE SQ SCH (08:45)
[2021-12-14] MEDS: ***HM***(Fluticasone/Umeclidin/Vilanter (Trelegy Ellipta 100-62.5- IH SCH (08:46)
[2021-12-14] MEDS: INSULIN GLARGINE 100 UNITS/ML 10 ML VIAL SQ SCH (08:46)
[2021-12-14] MEDS ORDERED: INSULIN GLARGINE 100 UNITS/ML 10 ML VIAL SQ SCH (09:00)
[2021-12-14 11:34] VITALS: BP 113/62
[2021-12-14 15:38] VITALS: BP 126/49
[2021-12-14 19:12] VITALS: BP 136/71
[2021-12-14] MEDS ORDERED: 0.9%NACL 50ML 50 ML IV ONE (21:24)
[2021-12-14] MEDS: ATORVASTATIN 10 MG TABLET PO SCH (21:30)
[2021-12-14 23:11] VITALS: BP 171/65
[2021-12-15 03:17] VITALS: BP 135/69
[2021-12-15 03:43] LABS: MEAN CORPUSCULAR HEMOGLOBIN 28.7 pg (27.0-33.0); MEAN CORPUSCULAR HGB CONC 32.4 g/dL (32.0-36.0); MEAN CORPUSCULAR VOLUME 88.4 fL (79-99); RED BLOOD CELL COUNT(AUTO) 3.28 MIL/uL (4.00-5.50); RED CELL DISTRIBUTION WIDTH 14.2 % (11.0-15.5); WHITE BLOOD COUNT (AUTO) 6.9 K/uL (4.8-10.8)
[2021-12-15 03:55] LABS: INR 0.94 (0.85-1.15); PROTHROMBIN TIME 10.3 SEC (9.6-11.6)
[2021-12-15 03:56] LABS: PARTIAL THROMBOPLASTIN TIME 22.5 SEC (26.3-35.5)
[2021-12-15 04:01] LABS: ALBUMIN 2.4 g/dL (3.5-5.0); CREATININE 0.8 mg/dL (0.5-1.5); MAGNESIUM 1.5 mg/dL (1.80-2.40); POTASSIUM 4.2 mmol/L (3.5-5.1); TOTAL PROTEIN, SERUM 5.6 g/dL (6.0-8.3)
[2021-12-15] MEDS: ACETAMINOPHEN 325 MG TAB PO PRN (05:24)
[2021-12-15] MEDS: INSULIN HUMULIN R 100 UNIT/ML 3ML SQ SCH ×4 (06:08→21:00)
[2021-12-15] MEDS: LEVOTHYROXINE 112 MCG TABLET PO SCH (06:24)
[2021-12-15 07:00] VITALS: BP 126/76
[2021-12-15] MEDS: ***HM***(Fluticasone/Umeclidin/Vilanter (Trelegy Ellipta 100-62.5- IH SCH (08:50)
[2021-12-15] MEDS: ZOSYN 3.375GM +NS 50ML IV SCH (08:50)
[2021-12-15] MEDS: POLYETHYLENE GLYCOL 3350 17 GM POWD.PACK PO SCH (08:50)
[2021-12-15] MEDS: LISINOPRIL 20 MG TABLET PO SCH (08:51)
[2021-12-15] MEDS: METOPROLOL SUCCINATE 25 MG TAB.SR.24H PO SCH (08:51)
[2021-12-15] MEDS: ENOXAPARIN SODIUM 40 MG/0.4 ML SYRINGE SQ SCH (08:53)
[2021-12-15] MEDS: INSULIN GLARGINE 100 UNITS/ML 10 ML VIAL SQ SCH (08:54)
[2021-12-15] MEDS: MAGNESIUM 2GM PREMIX 50ML 50 ML IV PRN (08:56)
[2021-12-15 11:00] VITALS: BP 139/71
[2021-12-15 16:00] VITALS: BP 142/82
[2021-12-15] MEDS ORDERED: MAGNESIUM 2GM PREMIX 50ML 50 ML IV SCH (17:00)
[2021-12-15 19:27] VITALS: BP_SYST 132; BP_SYST 142; BP_DIAS 68
[2021-12-15] MEDS: ATORVASTATIN 10 MG TABLET PO SCH (21:45)
[2021-12-16] VITALS (8 sets, daily range): BP systolic 131–158; BP diastolic 64–89
[2021-12-16 04:53] LABS: HEMATOCRIT 29.5 % (36-48); MEAN CORPUSCULAR HEMOGLOBIN 28.8 pg (27.0-33.0); MEAN CORPUSCULAR HGB CONC 32.2 g/dL (32.0-36.0); MEAN CORPUSCULAR VOLUME 89.4 fL (79-99); RED BLOOD CELL COUNT(AUTO) 3.3 MIL/uL (4.00-5.50); RED CELL DISTRIBUTION WIDTH 14.1 % (11.0-15.5); WHITE BLOOD COUNT (AUTO) 7.9 K/uL (4.8-10.8)
[2021-12-16 05:03] LABS: ALBUMIN 2.4 g/dL (3.5-5.0); CREATININE 0.7 mg/dL (0.5-1.5); MAGNESIUM 1.8 mg/dL (1.80-2.40); POTASSIUM 3.8 mmol/L (3.5-5.1); TOTAL PROTEIN, SERUM 5.4 g/dL (6.0-8.3)
[2021-12-16] MEDS: LEVOTHYROXINE 112 MCG TABLET PO SCH (05:10)
[2021-12-16] MEDS: POTASSIUM CHLORIDE 10% ELIXIR 20 MEQ/15 ML UDCUP PO PRN (05:10)
[2021-12-16] MEDS: ACETAMINOPHEN 325 MG TAB PO PRN (06:27)
[2021-12-16] MEDS: INSULIN HUMULIN R 100 UNIT/ML 3ML SQ SCH ×4 (06:32→20:37)
[2021-12-16] MEDS: ***HM***(Fluticasone/Umeclidin/Vilanter (Trelegy Ellipta 100-62.5- IH SCH (09:00)
[2021-12-16] MEDS: POLYETHYLENE GLYCOL 3350 17 GM POWD.PACK PO SCH (09:00)
[2021-12-16] MEDS: ENOXAPARIN SODIUM 40 MG/0.4 ML SYRINGE SQ SCH (09:38)
[2021-12-16] MEDS: METOPROLOL SUCCINATE 25 MG TAB.SR.24H PO SCH (09:38)
[2021-12-16] MEDS: LISINOPRIL 20 MG TABLET PO SCH (09:38)
[2021-12-16] MEDS: INSULIN GLARGINE 100 UNITS/ML 10 ML VIAL SQ SCH (09:42)
[2021-12-16] MEDS: GABAPENTIN 300 MG CAPSULE PO SCH ×2 (13:39→21:47)
[2021-12-16] MEDS: ATORVASTATIN 10 MG TABLET PO SCH (21:47)
== END 2021-12-16 23:15 | disposition hospice, home (50) | DRG 200 ==
LOC: EDH 11:38 → EDHIP 17:37 → 2AH 21:45
PROVIDERS: ADMIT Internal Medicine Critical Care Medicine; ATTEND Internal Medicine Critical Care Medicine
PROC: 0W9B30Z Drainage of Left Pleural Cavity with Drainage Device, Percutaneous Approach (ICD-10-PCS; principal; 2021-12-05)
DX: J93.83 Other pneumothorax (principal); E44.0 Moderate protein-calorie malnutrition; E87.2 Acidosis; N17.9 Acute kidney failure, unspecified; N39.0 Urinary tract infection, site not specified; J96.10 Chronic respiratory failure, unspecified whether with hypoxia or hypercapnia; Z20.822 Contact with and (suspected) exposure to COVID-19; J98.4 Other disorders of lung; E11.65 Type 2 diabetes mellitus with hyperglycemia; E86.0 Dehydration; I10 Essential (primary) hypertension; E78.5 Hyperlipidemia, unspecified; E87.5 Hyperkalemia; Z66 Do not resuscitate; E66.9 Obesity, unspecified; G50.0 Trigeminal neuralgia; E03.9 Hypothyroidism, unspecified; E78.00 Pure hypercholesterolemia, unspecified; F41.9 Anxiety disorder, unspecified; J44.9 Chronic obstructive pulmonary disease, unspecified; Z79.4 Long term (current) use of insulin; Z90.710 Acquired absence of both cervix and uterus; Z74.01 Bed confinement status; Z68.30 Body mass index [BMI] 30.0-30.9, adult
CPT/HCPCS: 36415; 36600; 71045; 71250; 80048; 80053; 81001; 82435; 82550; 82803; 82947; 82948; 83036; 83605; 83690; 83735; 84100; 84132; 84295; 84443; 84484; 85018; 85025; 85027; 85610; 85651; 85730; 86140; 87088; 87635; 93005; 94010; 94664; 97039; C9803; G0378; J1650; J1815; J2405; J2543; J2704; J3010; J3475; J3490; J7070; J7512